=== PATIENT | female | born 1950 | race American Indian/Alaskan Native ===

== ENCOUNTER 2019-06-26 07:41 | Day surgery (SDC) | payer MEDICARE ==
[2019-06-26] VITALS (9 sets, daily range): BP systolic 117–144; BP diastolic 61–79
[~2019-06-26] VITALS: Ht 167.6 cm; Wt 101.2 kg
[2019-06-26] MEDS ORDERED: normal saline 1,000 ML IV SCH (08:05)
[2019-06-26] MEDS ORDERED: diphenhydrAMINE 25mg capsule PO PRN (08:05)
[2019-06-26] MEDS ORDERED: B12 (08:20)
[2019-06-26] MEDS ORDERED: NITROFURANTOIN PO (08:20)
[2019-06-26] MEDS ORDERED: HYDR-3972 PO (08:20)
[2019-06-26] MEDS ORDERED: MAGN250T11 PO (08:20)
[2019-06-26] MEDS ORDERED: NITR0.4T51 SL (08:20)
[2019-06-26] MEDS ORDERED: PROP325C PO (08:20)
--- NOTE | 2019-06-26 08:24 | NUR ---
CALLED PT REQUESTING ANTI ANXIETY MEDICATION, WAITING FOR A CALL BACK.
[2019-06-26] MEDS ORDERED: LIDOcaine 1% (10mg/ml) 2ml vial ONE (08:36)
[2019-06-26] MEDS ORDERED: fentaNYL/PF 50MCG/1 ML 2ML syringe ONE ×2 (08:50→09:42)
[2019-06-26] MEDS ORDERED: midazolam 2 mg/2 ml injection ONE ×3 (08:50→09:46)
[2019-06-26] MEDS ORDERED: iohexol 350MG/ML 100ml bottle IV ONE (08:50)
[2019-06-26] MEDS ORDERED: iohexol 350 MG/ML 50ML vial IV ONE (08:50)
[2019-06-26 08:52] LABS: BASOPHILS % (AUTO) 0.4 % (0-1); EOSINOPHILS # (AUTO) 0.1 X10'3 (0-0.9); EOSINOPHILS % (AUTO) 1.6 % (0-6); HEMATOCRIT 40.9 % (35.0-45.0); HEMOGLOBIN 13.7 g/dl (12.0-16.0); LYMPHOCYTES # (AUTO) 1.6 X10'3 (1.1-4.8); LYMPHOCYTES % (AUTO) 22.1 % (21-51); MEAN CORPUSCULAR HEMOGLOBIN 30.2 PG (27.0-31.0); MEAN CORPUSCULAR HGB CONC 33.4 g/dL (33.0-36.5); MEAN CORPUSCULAR VOLUME 90.4 FL (78-98); MEAN PLATELET VOLUME 8.1 FL (7.4-10.4); MONOCYTES # (AUTO) 0.6 X10'3 (0-0.9); MONOCYTES % (AUTO) 8.5 % (2-12); NEUTROPHILS # (AUTO) 4.9 X10'3 (1.8-7.7); NEUTROPHILS % (AUTO) 67.4 % (42-75); PLATELET COUNT 295 X10'3 (140-440); RED BLOOD COUNT 4.53 X10'6 (4.20-5.60); RED CELL DISTRIBUTION WIDTH 14.1 % (11.5-14.5); WHITE BLOOD COUNT 7.2 X10'3 (4.5-11.0)
[2019-06-26 08:58] LABS: ALBUMIN 3.8 G/DL (3.4-5.0); ANION GAP 8 (8-16); BLOOD UREA NITROGEN 12 MG/DL (7-18); BUN/CREATININE RATIO 23.5 (6.6-38.0); CALCIUM 8.9 MG/DL (8.5-10.1); CHLORIDE 108 MMOL/L (99-107); CREATININE 0.51 MG/DL (0.40-0.90); GLUCOSE 109 MG/DL (70-104); SODIUM 143 MMOL/L (135-145); TOTAL CARBON DIOXIDE 26.8 MMOL/L (24-32); eGFR > 90 ML/MIN
[2019-06-26] MEDS ORDERED: nitroGLYCERIN-Tridil 50MG/D5W 250 ML IV ONE (09:05)
[2019-06-26] MEDS ORDERED: LIDOcaine 1% (10mg/ml)w/preservative injection 20ml MDV ONE (09:06)
[2019-06-26] MEDS ORDERED: verapamil 2.5 mg/ml inj IV ONE (09:06)
[2019-06-26] MEDS ORDERED: heparin 1,000unit/ml 10ml vial 10 ML ONE (09:06)
[2019-06-26] MEDS ORDERED: proCHLORperazine 10 MG/2 ml inj ONE (09:40)
[2019-06-26] MEDS ORDERED: HYDROcodone/acetaminophen 10/325mg tab PO PRN (10:40)
[2019-06-26] MEDS ORDERED: acetaminophen 325mg tablet PO PRN (10:40)
[2019-06-26] MEDS ORDERED: ondansetron/PF 4mg/2ml inj IV PRN (10:40)
[2019-06-26] MEDS ORDERED: HYDROcodone/acetaminophen 5mg/325mg tablet PO PRN (10:40)
[2019-06-26] MEDS ORDERED: proCHLORperazine 10 MG/2 ml inj IV PRN (10:40)
== END 2019-06-26 14:00 | disposition home or self-care (01) ==
LOC: SSTAY O 07:41
PROVIDERS: ATTEND Internal Medicine Cardiovascular Disease
DX: R07.9 Chest pain, unspecified (principal); M79.602 Pain in left arm; I48.0 Paroxysmal atrial fibrillation; G47.00 Insomnia, unspecified; E03.9 Hypothyroidism, unspecified; K21.9 Gastro-esophageal reflux disease without esophagitis; F32.9 Major depressive disorder, single episode, unspecified; M19.90 Unspecified osteoarthritis, unspecified site; Z79.899 Other long term (current) drug therapy; G89.29 Other chronic pain; Z96.653 Presence of artificial knee joint, bilateral; Z90.710 Acquired absence of both cervix and uterus; Z90.49 Acquired absence of other specified parts of digestive tract; Z98.890 Other specified postprocedural states; Z88.2 Allergy status to sulfonamides; Z88.8 Allergy status to other drugs, medicaments and biological substances
CPT/HCPCS: 36415; 80048; 83735; 85025; 85610; 93005; 93458; 99152; 99153; C1769; C1894; J0780; J1644; J2001; J2250; J3010; J7030; Q0163; Q9967; A4620; A5120; J3490

== ENCOUNTER 2020-05-06 11:59 | Day surgery (SDC) | payer MEDICARE ==
[~2020-05-06] VITALS: Ht 167.6 cm; Wt 97.4 kg
[2020-05-06] VITALS (9 sets, daily range): BP systolic 106–132; BP diastolic 56–78
[~2020-05-06 11:59] MED LIST: B12; HYDR-3972 PO; MAGN250T11 PO; NITR0.4T51 SL; NITROFURANTOIN PO; PROP325C PO
[2020-05-06] MEDS ORDERED: diphenhydrAMINE 25mg capsule PO PRN (12:25)
[2020-05-06] MEDS ORDERED: normal saline 1,000 ML IV SCH (12:25)
[2020-05-06] MEDS ORDERED: LORazepam 2 mg/ml vial IV STA (12:59)
[2020-05-06] MEDS ORDERED: fentaNYL/PF 50MCG/1 ML 2ML syringe ONE ×2 (13:46→14:28)
[2020-05-06] MEDS ORDERED: iohexol 350 MG/ML 50ML vial IV ONE (13:46)
[2020-05-06] MEDS ORDERED: iohexol 350MG/ML 100ml bottle IV ONE (13:46)
[2020-05-06] MEDS ORDERED: midazolam 2 mg/2 ml injection ONE ×3 (13:46→14:27)
[2020-05-06] MEDS ORDERED: LIDOcaine 1% (10mg/ml)w/preservative injection 20ml MDV ONE (13:47)
[2020-05-06] MEDS ORDERED: heparin 1,000unit/ml 10ml vial 10 ML ONE (13:47)
[2020-05-06] MEDS ORDERED: verapamil 2.5 mg/ml inj IV ONE (13:52)
[2020-05-06] MEDS ORDERED: nitroGLYCERIN-Tridil 50MG/D5W 250 ML IV ONE (13:52)
[2020-05-06 13:54] LABS: BASOPHILS % (AUTO) 0.2 % (0-1); EOSINOPHILS # (AUTO) 0.1 X10'3 (0-0.9); EOSINOPHILS % (AUTO) 1.5 % (0-6); HEMATOCRIT 38.1 % (35.0-45.0); HEMOGLOBIN 12.8 g/dl (12.0-16.0); LYMPHOCYTES # (AUTO) 1.7 X10'3 (1.1-4.8); LYMPHOCYTES % (AUTO) 21.7 % (21-51); MEAN CORPUSCULAR HEMOGLOBIN 30.1 PG (27.0-31.0); MEAN CORPUSCULAR HGB CONC 33.6 g/dL (33.0-36.5); MEAN CORPUSCULAR VOLUME 89.9 FL (78-98); MEAN PLATELET VOLUME 8.1 FL (7.4-10.4); MONOCYTES # (AUTO) 0.6 X10'3 (0-0.9); MONOCYTES % (AUTO) 7.6 % (2-12); NEUTROPHILS # (AUTO) 5.3 X10'3 (1.8-7.7); PLATELET COUNT 295 X10'3 (140-440); RED BLOOD COUNT 4.24 X10'6 (4.20-5.60); RED CELL DISTRIBUTION WIDTH 14.3 % (11.5-14.5); WHITE BLOOD COUNT 7.7 X10'3 (4.5-11.0)
[2020-05-06] MEDS ORDERED: TRIM100T PO (13:57)
[2020-05-06] MEDS ORDERED: VITC500T PO (13:57)
[2020-05-06] MEDS ORDERED: SUCR1TAB PO (13:57)
[2020-05-06] MEDS ORDERED: TURM500C4 PO (13:57)
[2020-05-06] MEDS ORDERED: CYAN100097 PO (13:57)
[2020-05-06] MEDS ORDERED: MV-M1TAB19 PO (13:57)
[2020-05-06 14:02] LABS: PARTIAL THROMBOPLASTIN TIME 27 SECONDS (22-32)
[2020-05-06 14:05] LABS: ALANINE AMINOTRANSFERASE 20 U/L (12-78); ALBUMIN 3.6 G/DL (3.4-5.0); ALBUMIN/GLOBULIN RATIO 1.2 (1.1-1.5); ALKALINE PHOSPHATASE 79 IU/L (46-116); ANION GAP 7 (8-16); ASPARTATE AMINO TRANSFERASE 13 U/L (10-37); BILIRUBIN,TOTAL 1.3 MG/DL (0.1-1.0); BLOOD UREA NITROGEN 10 MG/DL (7-18); BUN/CREATININE RATIO 14.5 (6.6-38.0); CALCIUM 8.7 MG/DL (8.5-10.1); CHLORIDE 109 MMOL/L (99-107); CREATININE 0.69 MG/DL (0.40-0.90); GLUCOSE 93 MG/DL (70-104); SODIUM 143 MMOL/L (135-145); TOTAL CARBON DIOXIDE 26.6 MMOL/L (24-32); TOTAL PROTEIN 6.7 G/DL (6.4-8.2); eGFR 84 ML/MIN
== END 2020-05-06 18:00 | disposition home or self-care (01) ==
LOC: SSTAY O 11:59
PROVIDERS: ATTEND Internal Medicine Cardiovascular Disease
DX: R07.89 Other chest pain (principal); I48.91 Unspecified atrial fibrillation; G47.30 Sleep apnea, unspecified; E03.9 Hypothyroidism, unspecified; G43.809 Other migraine, not intractable, without status migrainosus; F32.9 Major depressive disorder, single episode, unspecified; I49.3 Ventricular premature depolarization; M19.90 Unspecified osteoarthritis, unspecified site; Z79.899 Other long term (current) drug therapy; Z96.653 Presence of artificial knee joint, bilateral; Z90.710 Acquired absence of both cervix and uterus; Z90.49 Acquired absence of other specified parts of digestive tract; Z98.890 Other specified postprocedural states; Z86.73 Personal history of transient ischemic attack (TIA), and cerebral infarction without residual deficits; Z88.2 Allergy status to sulfonamides; Z88.1 Allergy status to other antibiotic agents; Z88.8 Allergy status to other drugs, medicaments and biological substances
CPT/HCPCS: 36415; 80053; 83735; 85025; 85610; 85730; 93005; 93458; 99152; 99153; C1769; C1894; J1644; J2001; J2060; J2250; J3010; J7030; Q0163; Q9967; A4620; J3490